=== PATIENT | female | born 1960 | race Caucasian/White ===

== ENCOUNTER 2022-02-19 12:22 | Emergency (ER) | payer SELFPAY ==
[~2022-02-19] VITALS: Ht 154.9 cm; Wt 77.3 kg
--- NOTE | 2022-02-19 12:28 | NUR ---
pt abrasive and rude to this staff in triage. pt asks after being triaged how long of a wait it will be "since I came by ambulance I should be in right away." pt informed we do not give wait times but patients are roomed based off severity and we will see her as soon as we can. pt asked how many doctors were working and pt informed we have 1 PA and 1 EDMD currently working. pt states "I refuse to see a PA. my medical needs are too complicated. I need a specialist. I will not see a PA I will only see an MD. I demand it."
--- NOTE | 2022-02-19 13:52 | NUR ---
Patient refused to leave the hallway by registration. production control clerk came to me and stated that patient would not leave the hallway until she could speak to the nurse charge rn. I came up to speak with patient, as soon as I came up to introduce myself patient began to speak loudly almost shouting and began to argue with me, stating that she demands to see an MD and will not see a PA and/or [employer]. 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 I asked her if she has had to change the dress since she got here, She stated, "no, this is the original dress." Bleeding appears to be controlled at this time with originial dressing. Patient informed me that she is on plavix and xarelto. I stated to her that she would be seen as soon as we had a room available. Her son stated that I should be able to give her something for pain. I stated that I was unable until she was seen by a provider and that provider ordered something for her. She shouted that she was in pain, "10 out of 10 pain!" I repeated again that she would be seen by a provider as soon as we had a room and that they would need to wait in the lobby. She continued to shout as I walked away unwilling to continue to be yelled at, stating, "This is now to treat patients, where is your compassion. I'm in pain." Then stated, "You didn't even tell me your name." I came back along side patient in wheelchair and stated, "when I first came up, you didn't allow me to say anything before shouting at me. My name is casey and I am the nurse charge rn. You may do what you will with that information." I then walked away. Addendum: 02/19/22 at 1449 by HKISER Patient is with patient, requesting pain medication.
[2022-02-19] MEDS ORDERED: morphine 4 MG/ML inj SYRINge IM ONE (14:30)
[2022-02-19] MEDS ORDERED: naproxen sodium 220mg tablet PO SCH (14:30)
[2022-02-19] MEDS ORDERED: gabapentin 400mg capsule PO SCH (14:30)
--- NOTE | 2022-02-19 14:30 | NUR ---
Pt refused IM Morphine. Demanded that it be given IV. notified.
--- NOTE | 2022-02-19 14:35 | NUR ---
stated that she would go in and talk to the patient.
[2022-02-19] MEDS ORDERED: morphine 4 MG/ML inj SYRINge IV ONE (15:20)
[2022-02-19] MEDS ORDERED: HYDR-3965 PO (15:54)
[2022-02-19] MEDS ORDERED: CEPH-585 PO (15:54)
--- NOTE | 2022-02-19 15:56 | NUR ---
Irrigation set up in bed #11. Dr Baldwin notified.
[2022-02-19] MEDS ORDERED: pantoprazole 40mg Tablet.DR PO SCH (16:10)
[2022-02-19 16:30] VITALS: BP 91/45
[2022-02-19] MEDS ORDERED: naproxen 500mg tablet PO ONE (16:30)
== END 2022-02-19 17:23 | disposition home or self-care (01) ==
LOC: ER 12:22
DX: S91.114A Laceration without foreign body of right lesser toe(s) without damage to nail, initial encounter (principal); M25.561 Pain in right knee; J45.909 Unspecified asthma, uncomplicated; G89.29 Other chronic pain; Z86.711 Personal history of pulmonary embolism; Z95.5 Presence of coronary angioplasty implant and graft; Z86.61 Personal history of infections of the central nervous system; Z79.2 Long term (current) use of antibiotics; Z79.899 Other long term (current) drug therapy; Z88.2 Allergy status to sulfonamides; Z79.01 Long term (current) use of anticoagulants; W22.8XXA Striking against or struck by other objects, initial encounter; Y93.E1 Activity, personal bathing and showering; Y92.59 Other trade areas as the place of occurrence of the external cause; Y99.8 Other external cause status
CPT/HCPCS: 12001; 29530; 73560; 73660; 96374; 99284; J2270